=== PATIENT | male | born 1980 | race African-American/Black ===

== ENCOUNTER 2020-03-10 12:09 | Emergency (ER) | payer MEDICAID, OTHER ==
[~2020-03-10] VITALS: Ht 175.3 cm; Wt 68.0 kg
[2020-03-10 12:17] VITALS: BP 157/95
== END 2020-03-10 13:36 | disposition home or self-care (01) ==
LOC: ER 12:09
DX: S60.321A Blister (nonthermal) of right thumb, initial encounter (principal); X58.XXXA Exposure to other specified factors, initial encounter; Y93.89 Activity, other specified; Y99.8 Other external cause status; Y92.89 Other specified places as the place of occurrence of the external cause
CPT/HCPCS: 10060; 10140

== ENCOUNTER 2025-02-08 06:35 | Emergency (ER) | payer OTHER ==
[~2025-02-08] VITALS: Ht 177.8 cm; Wt 68.1 kg
[2025-02-08 06:35] VITALS: BP 164/105; PULSE 90; RESP 18; TEMP 98.1; O2SAT 95
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
[2025-02-08 07:24] LABS: Hematocrit 49.0 % (41.0-53.0)
[2025-02-08 07:27] LABS: Hemoglobin 16.9 g/dL (13.5-17.5); Mean Corpuscular Hemoglobin 34.8 pg (28.0-32.0); Mean Corpuscular Volume 100.9 fL (80.0-100.0); Nucleated Red Blood Cells % 0.2 %
[2025-02-08 07:48] LABS: Potassium 4.0 mmol/L (3.5-5.1); Sodium 145 mmol/L (136-145)
[2025-02-08 07:49] LABS: Anion Gap 10 (5-15); Calcium 9.0 mg/dL (8.7-10.4); Carbon Dioxide 25 mmol/L (20-31)
[2025-02-08 07:53] LABS: Chloride 110 mmol/L (98-107)
[2025-02-08 07:54] LABS: BUN/Creatinine Ratio 6.6 (10.0-20.0); Glucose 86 mg/dL (74-106)
[2025-02-08 07:55] LABS: Blood Urea Nitrogen 5 mg/dL (9-23)
== END 2025-02-08 08:58 | disposition left against medical advice (07) ==
LOC: EDBD 06:35 → ER 06:45
DX: R41.0 Disorientation, unspecified (principal); R11.2 Nausea with vomiting, unspecified; F10.90 Alcohol use, unspecified, uncomplicated; Y90.9 Presence of alcohol in blood, level not specified
CPT/HCPCS: 36415; 80048; 83880; 84484; 85025